=== PATIENT | male | born 1955 | race Caucasian/White ===

== ENCOUNTER → 2024-11-12 07:07 | Outpatient (REF) | payer MEDICARE, SELFPAY | LOC: RCS 07:07 | PROVIDERS: ATTENDING PHYSICIAN Internal Medicine Cardiovascular Disease; FAMILY PHYSICIAN Family Medicine | DX: I10 Essential (primary) hypertension (principal); I77.819 Aortic ectasia, unspecified site; I15.2 Hypertension secondary to endocrine disorders; E26.09 Other primary hyperaldosteronism | CPT/HCPCS: 93306 ==